=== PATIENT | female | born 1990 | race Caucasian/White ===

== ENCOUNTER 2017-01-05 11:31 | Emergency (ER) | payer BC ==
[2017-01-05 11:35] VITALS: BP 117/73
[2017-01-05] MEDS ORDERED: Ketorolac INJ* 60 MG/2 ML VIAL IM ONE (12:54)
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
[2017-01-05 14:30] LABS: UR Preg Internal Control QC Line Present
--- NOTE | 2017-01-05 15:02 | RAD ---
INDICATION: Right knee pain COMPARISON: None TECHNIQUE: AP, lateral, tunnel, and sunrise views were obtained. FINDINGS: The bony structures, joint spaces, and soft tissues are normal for age. IMPRESSION: NEGATIVE EXAMINATION.
== END 2017-01-05 15:45 | disposition home or self-care (01) ==
LOC: ED 11:31
DX: M25.561 Pain in right knee (principal); Z72.0 Tobacco use; X50.9XXA Other and unspecified overexertion or strenuous movements or postures, initial encounter; Y93.89 Activity, other specified; Y92.9 Unspecified place or not applicable
CPT/HCPCS: 81025; 96372; 99282; J1885

== ENCOUNTER 2018-04-28 12:20 | Emergency (ER) | payer BC ==
[2018-04-28 12:57] LABS: Urine Appearance Clear; Urine Blood 3+ (Negative); Urine Color Straw; Urine Ketones Negative (Negative); Urine Protein Negative (Negative); Urine Red Blood Cell 2+(6-10/hpf) (Absent); Urine Specific Gravity 1.009 (1.010-1.030); Urine Urobilinogen Negative (Negative); Urine White Blood Cell Trace(0-5/hpf) (Absent)
[2018-04-28 13:53] LABS: ABS Basophils 0.1 10^3/ul (0-0.2); ABS Eosinophils 0.5 10^3/ul (0-0.6); ABS Lymphocytes 3.7 10^3/ul (1.0-4.8); ABS Monocytes 0.6 10^3/ul (0-0.8); ABS Neutrophils 7.1 10^3/ul (1.5-7.7); ABS Nucleated RBC 0 10^3/ul; Hematocrit 44 % (35-47); Hemoglobin 15.5 g/dl (12.0-16.0); Lymphocyte % 31.1 % (25-47); Mean Corpuscular HGB Conc 36 g/dl (31-36); Mean Corpuscular Hemoglobin 34 pg (27-31); Mean Corpuscular Volume 96 fL (80-97); Mean Platelet Volume 8.4 um3 (7.4-10.4); Nucleated Red Blood Cells % 0.1; Platelet Count 257 10^3/ul (150-450); Red Blood Count 4.56 10^6/ul (4.00-5.40); Red Cell Distribution Width 12 % (10.5-15)
[2018-04-28 14:10] LABS: EGFR Non-African American 79.8 (>60)
--- NOTE | 2018-04-28 15:15 | RAD ---
Indication: LEFT flank pain. Cold sweats. Comparison: No relevant prior exams available on the [facility] for comparison. Technique: Renal ultrasound. Report: 9.7 x 3.8 x 4.6 cm RIGHT kidney. 9.2 x 4.0 x 4.5 cm LEFT kidney. Normal bilateral renal cortical thickness and echogenicity. No visible focal renal lesions or conspicuous stones or hydronephrosis. Grossly symmetric renal vascularity. Upper normal size spleen measuring 12.5 x 5.4 x 11.7 cm. No ascites visualized within the [id number]. IMPRESSION: #. Normal renal ultrasound.
--- NOTE | 2018-04-28 17:12 | ED ---
Abdominal Pain/Female - HPI Summary HPI Summary: Patient presents with acute left-sided abdominal pain that started yesterday night at 23:00 and lasted until 6:00am today. She reports his wraps around her Lt flank but also has pain in Rt flank. Preceding symptoms were pressure at the end of urination starting last week. She denies dysuria, urinary frequency or urgency. She also admits she and her partner trying to get . She is currently menstruating however admits this is a week later than it was supposed to be. She denies any abnormal vaginal discharge otherwise including qualities of discoloration or malodor. She has not had intercourse since the symptoms started and did denies dyspareunia prior to symptoms starting. No h/o abnormal pap. H/o yeast but does not feel the same. No previous h/o BV or STD's. Additionally she reports having diarrhea yesterday - no BM today. Denies nausea , vomiting, fever, chills. No previous ab surgeries or GI issues. 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 Hx Last Menstrual Period: 01/13/13 Pain Intensity: 7 Allergies/Adverse Reactions: Allergies Allergy/AdvReac Type Severity Reaction Status Date / Time Adhesive Tape Allergy Rash Verified 04/28/18 12:34 PMH/Surg Hx/FS Hx/Imm Hx Previously Healthy: Yes Endocrine/Hematology History: Denies: Hx Anticoagulant Therapy, Hx Diabetes, Hx Thyroid Disease, Hx Anemia , Autoimmune Disease Cardiovascular History: Denies: Hx Hypertension, Hx Pacemaker/ICD Respiratory History: Denies: Hx Asthma GI History: Denies: Hx Cirrhosis, Hx Crohn's Disease, Hx Diverticulosis, Hx Gall Bladder Disease, Hx Gastroesophageal Reflux Disease, Hx Gastrointestinal Bleed, Hx Hiatal Hernia, Hx Irritable Bowel, Hx Obstructive Bowel, Hx Ulcer History: Denies: Hx Kidney Infection, Hx Kidney Stones, Hx Renal Disease, Other Problems/Disorders Sensory History: Denies: Hx Hearing Aid Psychiatric History: Denies: Hx Panic Disorder - Surgical History Surgery Procedure, Year, and Place: D&C;. 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 Negative: Vomiting, Nausea Positive: see HPI Musculoskeletal: Negative Skin: Negative Neurological: Negative Negative: Headache Psychological: Normal All Other Systems Reviewed And Are Negative: Yes Physical Exam Triage Information Reviewed: Yes Vital Signs On Initial Exam: Initial Vitals Temp Pulse Resp BP Pulse Ox 98.1 F 94 18 130/79 98 04/28/18 12:30 04/28/18 12:30 04/28/18 12:30 04/28/18 12:30 04/28/18 12:30 Vital Signs Reviewed: Yes Appearance: Positive: Well-Appearing, Pain Distress - appears comfortable but reports 6/10 pain, Obese Skin: Positive: Warm, Skin Color Reflects Adequate Perfusion, Dry - no ecchymosis over ab Head/Face: Positive: Normal Head/Face Inspection Eyes: Positive: Normal, EOMI, Conjunctiva Clear - anicteric sclera ENT: Positive: Pharynx normal - mucosa moist Respiratory/Lung Sounds: Positive: Clear to Auscultation, Breath Sounds Present. Negative: Rales, Rhonchi, Wheezes Cardiovascular: Positive: Normal, RRR Abdomen Description: Positive: No Organomegaly, Soft, Other: - TTP over RLQ and LLQ - no rebounding. Negative: CVA Tenderness (R), CVA Tenderness (L), Guarding Bowel Sounds: Positive: Present Pelvic Exam: Positive: External Exam Normal, Bimanual Exam Normal, No Cerv. Motion Tender, Active Bleeding, Other - cervix was not visualized d/t body habitus. Negative: Lesions Musculoskeletal: Positive: Normal, Strength/ROM Intact Neurological: Positive: Normal, Sensory/Motor Intact, Alert, Oriented to Person Place, Time, CN Intact II-III Psychiatric: Positive: Normal Diagnostics - Vital Signs Vital Signs Temp Pulse Resp BP Pulse Ox 04/28/18 14:28 98.2 F 90 18 127/57 98 04/28/18 12:30 98.1 F 94 18 130/79 98 - Laboratory Lab Results: Lab Results 04/28/18 04/28/18 04/28/18 Range/Units 12:39 13:41 13:41 WBC 12.0 H (3.5-10.8) 10^3/ul RBC 4.56 (4.00-5.40) 10^6/ul Hgb 15.5 (12.0-16.0) g/dl Hct 44 (35-47) % MCV 96 (80-97) fL MCH 34 H (27-31) pg MCHC 36 (31-36) g/dl RDW 12 (10.5-15) % Plt Count 257 (150-450) 10^3/ul MPV 8.4 (7.4-10.4) um3 Neut % (Auto) 59.0 (38-83) % Lymph % (Auto) 31.1 (25-47) % Cand[place] % (Auto) 5.0 (0-7) % Eos % (Auto) 4.0 (0-6) % Baso % (Auto) 0.9 (0-2) % Absolute Neuts (auto) 7.1 (1.5-7.7) 10^3/ul Absolute Lymphs (auto) 3.7 (1.0-4.8) 10^3/ul Absolute Monos (auto) 0.6 (0-0.8) 10^3/ul Absolute Eos (auto) 0.5 (0-0.6) 10^3/ul Absolute Basos (auto) 0.1 (0-0.2) 10^3/ul Absolute Nucleated RBC 0 10^3/ul Nucleated RBC % 0.1 Sodium 139 (135-145) mmol/L Potassium 4.0 (3.5-5.0) mmol/L Chloride 106 (101-111) mmol/L Carbon Dioxide 26 (22-32) mmol/L Anion Gap 7 (2-11) mmol/L BUN 9 (6-24) mg/dL Creatinine 0.86 (0.51-0.95) mg/dL Est GFR ( Amer) 96.5 (>60) Est GFR (Non-Af Amer) 79.8 (>60) BUN/Creatinine Ratio 10.5 (8-20) Glucose 87 (70-100) mg/dL Lactic Acid (0.5-2.0) mmol/L Calcium 9.6 (8.6-10.3) mg/dL Magnesium 1.8 L (1.9-2.7) mg/dL Total Bilirubin 0.40 (0.2-1.0) mg/dL AST 13 (13-39) U/L ALT 16 (7-52) U/L Alkaline Phosphatase 81 (34-104) U/L C-Reactive Protein 25.64 H (<8.01) mg/L Total Protein 7.1 (6.4-8.9) g/dL Albumin 4.2 (3.2-5.2) g/dL Globulin 2.9 (2-4) g/dL Albumin/Globulin Ratio 1.4 (1-3) Lipase < 10 L (11.0-82.0) U/L Beta HCG, Quant < 0.60 mIU/mL Urine Color Straw Urine Appearance Clear Urine pH 6.0 (5-9) Ur Specific [place] 1.009 L (1.010-1.030) Urine Protein Negative (Negative) Urine Ketones Negative (Negative) Urine Blood 3+ A (Negative) Urine Nitrate Negative (Negative) Urine Bilirubin Negative (Negative) Urine Urobilinogen Negative (Negative) Ur Leukocyte Esterase Negative (Negative) Urine WBC (Auto) Trace(0-5/hpf) (Absent) Urine RBC (Auto) 2+(6-10/hpf) A (Absent) Ur Squamous Epith Cells Present A (Absent) Urine Bacteria Absent (Absent) Urine Glucose Negative (Negative) 04/28/18 Range/Units 13:41 WBC (3.5-10.8) 10^3/ul RBC (4.00-5.40) 10^6/ul Hgb (12.0-16.0) g/dl Hct (35-47) % MCV (80-97) fL MCH (27-31) pg MCHC (31-36) g/dl RDW (10.5-15) % Plt Count (150-450) 10^3/ul MPV (7.4-10.4) um3 Neut % (Auto) (38-83) % Lymph % (Auto) (25-47) % Candler % (Auto) (0-7) % Eos % (Auto) (0-6) % Baso % (Auto) (0-2) % Absolute Neuts (auto) (1.5-7.7) 10^3/ul Absolute Lymphs (auto) (1.0-4.8) 10^3/ul Absolute Monos (auto) (0-0.8) 10^3/ul Absolute Eos (auto) (0-0.6) 10^3/ul Absolute Basos (auto) (0-0.2) 10^3/ul Absolute Nucleated RBC 10^3/ul Nucleated RBC % Sodium (135-145) mmol/L Potassium (3.5-5.0) mmol/L Chloride (101-111) mmol/L Carbon Dioxide (22-32) mmol/L Anion Gap (2-11) mmol/L BUN (6-24) mg/dL Creatinine (0.51-0.95) mg/dL Est GFR ( Amer) (>60) Est GFR (Non-Af Amer) (>60) BUN/Creatinine Ratio (8-20) Glucose (70-100) mg/dL Lactic Acid 0.5 (0.5-2.0) mmol/L Calcium (8.6-10.3) mg/dL Magnesium (1.9-2.7) mg/dL Total Bilirubin (0.2-1.0) mg/dL AST (13-39) U/L ALT (7-52) U/L Alkaline Phosphatase (34-104) U/L C-Reactive Protein (<8.01) mg/L Total Protein (6.4-8.9) g/dL Albumin (3.2-5.2) g/dL Globulin (2-4) g/dL Albumin/Globulin Ratio (1-3) Lipase (11.0-82.0) U/L Beta HCG, Quant mIU/mL Urine Color Urine Appearance Urine pH (5-9) Ur Specific [place] (1.010-1.030) Urine Protein (Negative) Urine Ketones (Negative) Urine Blood (Negative) Urine Nitrate (Negative) Urine Bilirubin (Negative) Urine Urobilinogen (Negative) Ur Leukocyte Esterase (Negative) Urine WBC (Auto) (Absent) Urine RBC (Auto) (Absent) Ur Squamous Epith Cells (Absent) Urine Bacteria (Absent) Urine Glucose (Negative) Result Diagrams: 04/28/18 13:41 04/28/18 13:41 Lab Statement: Any lab studies that have been ordered have been reviewed, and results considered in the medical decision making process. Re-Evaluation - Re-Evaluation First Eval Change: Worse - 6/10 pain increased to 8/10 - will initiated IV morphine, zofran and fluids Abdominal Pain Fem Course/Dx - Course Course Of Treatment: Patient presents with acute left lower quadrant pain radiating around to her flank and diarrhea yesterday. Preceding symptoms of urinary pressure at the end of urination however her evaluation appears to be negative. Her transvaginal ultrasound reveals a 0.9 cm cyst in the right ovary (hemorrhagic versus endometrioma) and patient reminds me her pain is not predominantly on the right, it's on The Left. She Was Tender on ab Exam in the LLQ and Is now Reporting 8 Out Of 10 Pain - pain meds ordered. Her U/A Is Positive for Blood However She Has Vaginal Bleeding confirmed on pelvic exam Most Likely from Her Period Which She Believes She Started a Little Late. Her HCG Is Negative and No Ectopic Is Identified on Transvaginal Ultrasound Although She Is Trying to Get . TVUS also r/o'd torsion. Due To Elevated White Blood Cell Count, CRP and Left Lower Quadrant Pain w/ Bowel Symptoms, CT with IV Contrast Was Ordered to assess for Diverticulitis. Pt signed out to Yadira Washington PA-C in stable condition. NOTE: pelvic cx's taken but clinical suspicion of PID is extremely low as exam was nontender all the way around. - Diagnoses Provider Diagnoses: LLQ abdominal pain Discharge - Sign-Out/Discharge Documenting (check all that apply): Sign-Out Patient Signing out patient TO: Naomy Washington - Discharge Plan Condition: Stable - Billing Disposition and Condition Condition: STABLE
--- NOTE | 2018-04-28 17:29 | RAD ---
HISTORY: LLQ pain, beta hCG negative COMPARISONS: None TECHNIQUE: Multiple transverse and longitudinal ultrasound images were obtained of the pelvis using grayscale, color Doppler, and spectral Doppler imaging using the endovaginal transducer. FINDINGS: UTERUS: The uterus measures 6.7 x 3 x 3.5 cm. The uterus is normal in shape, size, contour, and echotexture. Cervical nabothian cysts are noted. ENDOMETRIUM: The endometrial stripe is smooth. The endometrium measures 0.3 cm in thickness. CUL-DE-SAC: There is no free fluid within the cul-de-sac. RIGHT OVARY: The right ovary measures 3.1 x 2.2 x 1.8 cm. Multiple follicles are noted. There is a hyperechoic focus within the right ovary measuring 0.9 x 0.5 x 0.6 cm in size. Normal arterial and venous waveforms are identifiable within the ovary on spectral Doppler imaging. LEFT OVARY: The left ovary measures 2.2 x 2.1 x 1.6 cm. Multiple follicles are noted. Normal arterial and venous waveforms are identifiable within the ovary on spectral Doppler imaging. BLADDER: The bladder is not well visualized. OTHER: None IMPRESSION: 1. NO SONOGRAPHIC FEATURES OF TORSION. PLEASE NOTE THAT PARTIAL OR INTERMITTENT TORSION MAY BE SONOGRAPHICALLY NORMAL. 2. HYPERECHOIC FOCUS WITHIN THE RIGHT OVARY MEASURING UP TO 0.9 CM. THIS MAY REPRESENT A SMALL HEMORRHAGIC CYST VERSUS AN ENDOMETRIOMA.
[2018-04-28] MEDS ORDERED: Ondansetron INJ* 2 MG/ML VIAL IV ONE (17:45)
[2018-04-28] MEDS ORDERED: Morphine INJ* 4 MG/ML 1 ML SYRINGE (NEW SYRINGE VERSION) IV ONE (17:45)
[2018-04-28] MEDS ORDERED: NS 0.9% 1000 ML* 1,000 ML IV ONE (17:45)
[2018-04-28] MEDS ORDERED: Iohexol 300* (CONTRAST) 10 ML SDV IV ONE (19:17)
[2018-04-28 19:49] VITALS: BP 107/68
--- NOTE | 2018-04-28 19:49 | RAD ---
EXAM: CT Abdomen and Pelvis With Intravenous Contrast EXAM DATE/TIME: 04/28/2018 7:29 PM CLINICAL HISTORY: 27 years old, female; Pain; Abdominal pain; Localized; Left lower quadrant (llq); Additional info: Llq pain - diverticulitis? TECHNIQUE: Axial computed tomography images of the abdomen and pelvis with intravenous contrast. All CT scans at this facility use at least one of these dose optimization techniques: automated exposure control; mA and/or kV adjustment per patient size (includes targeted exams where dose is matched to clinical indication); or iterative reconstruction. Coronal and sagittal reformatted images were created and reviewed. CONTRAST: 148 ml of [id number] administered intravenously. COMPARISON: DX HIP RT HIP RIGHT 2 VIEWS AND PELVIS 01/09/2017 9:11 AM FINDINGS: Lower thorax: No acute findings. ABDOMEN: Liver: There is mild hepatomegaly. This fatty lesion is seen best on axial image 67 of series 2. Gallbladder and bile ducts: Normal. No calcified stones. No ductal dilation. Pancreas: Normal. No ductal dilation. Spleen: Normal. No splenomegaly. Adrenals: Normal. No mass. Kidneys and ureters: Normal. No hydronephrosis. Stomach and bowel: Most of the colon and rectum are collapsed which limits evaluation for inflammatory change. Appendix: The appendix is unremarkable and seen best on axial image 46 of series 2. PELVIS: Bladder: Unremarkable as visualized. Reproductive: Unremarkable as visualized. ABDOMEN and PELVIS: Intraperitoneal space: There is a very small central fat attenuation lesion anterior to the proximal sigmoid colon measuring 10 mm diameter with no surrounding inflammatory change, possible epiploic appendagitis. Bones/joints: No acute fracture. No dislocation. Soft tissues: Unremarkable. Vasculature: Normal. No abdominal aortic aneurysm. Lymph nodes: Normal. No enlarged lymph nodes. IMPRESSION: 1. No evidence for acute diverticulitis or other bowel inflammatory change. 2. There is a very small central fat attenuation lesion anterior to the proximal sigmoid colon measuring 10 mm diameter with no surrounding inflammatory change, possible epiploic appendagitis. COMMENT: Consistent with the [employer]'s Incidental Findings Committee Report (J Am Carter Radiol 2010): Unless the patient's specific circumstances suggest otherwise, any liver lesion 0.5 cm or less, any cystic kidney lesion less than 1.0 cm, and/or any adrenal lesion 1.0 cm or less not otherwise characterized in this report as possessing suspicious or indeterminate imaging features is/are highly likely to be benign and do not require follow-up imaging or biopsy. To contact [facility] with a general question: [facility] - [phone] For direct physician to physician contact: Physician Hotline - [phone] [facility] ([facility] Facility ID #[id number])
--- NOTE | 2018-04-28 20:03 | ED ---
Progress - Progress Note Progress Note: patient signed out by monique pending CT. CT shows: IMPRESSION: 1. No evidence for acute diverticulitis or other bowel inflammatory change. 2. There is a very small central fat attenuation lesion anterior to the proximal sigmoid colon measuring 10 mm diameter with no surrounding inflammatory change, possible epiploic appendagitis. Re-Evaluation - Re-Evaluation First Eval Change: Worse - 6/10 pain increased to 8/10 - will initiated IV morphine, zofran and fluids Course/Dx - Course Course Of Treatment: Patient presents with acute left lower quadrant pain radiating around to her flank and diarrhea yesterday. Preceding symptoms of urinary pressure at the end of urination however her evaluation appears to be negative. Her transvaginal ultrasound reveals a 0.9 cm cyst in the right ovary (hemorrhagic versus endometrioma) and patient reminds me her pain is not predominantly on the right, it's on The Left. She Was Tender on ab Exam in the LLQ and Is now Reporting 8 Out Of 10 Pain - pain meds ordered. Her U/A Is Positive for Blood However She Has Vaginal Bleeding confirmed on pelvic exam Most Likely from Her Period Which She Believes She Started a Little Late. Her HCG Is Negative and No Ectopic Is Identified on Transvaginal Ultrasound Although She Is Trying to Get . TVUS also r/o'd torsion. Due To Elevated White Blood Cell Count, CRP and Left Lower Quadrant Pain w/ Bowel Symptoms, CT with IV Contrast Was Ordered to assess for Diverticulitis. Pt signed out to Yadira Washington PA-C in stable condition. NOTE: pelvic cx's taken but clinical suspicion of PID is extremely low as exam was nontender all the way around. CT shows possible epilopic appendigitis which would explain symptoms. discussed that this is a self limited disorder. patient requested pain medication so will give short course of tramadol. patient understand and agrees with plan. 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
== END 2018-04-28 20:25 | disposition home or self-care (01) ==
LOC: ED 12:20
DX: R10.32 Left lower quadrant pain (principal); F17.210 Nicotine dependence, cigarettes, uncomplicated
CPT/HCPCS: 36415; 74177; 76775; 76830; 80053; 81003; 81015; 83605; 83690; 83735; 84702; 85025; 86140; 87086; 87480; 87491; 87510; 87591; 87661; 96361; 96374; 96375; 99283; J2270; J2405; Q9967

== ENCOUNTER 2018-09-23 11:23 | Emergency (ER) | payer BC ==
--- NOTE | 2018-09-23 11:52 | UC ---
Minor Trauma HPI - HPI Summary HPI Summary: 27 yo WF p/w s/p fall onto a 5 gallon bucket when she miscalcualted the height of last step a her sister's house 3 days ago, now has bruising and pain in left upper upper arm, left chestwall and left ankle but able to ambulate - History of Current Complaint Chief Complaint: UCTrauma Stated Complaint: BRUISED ARM AND SIDE Time Seen by Provider: 09/23/18 11:40 Hx Obtained From: Patient Hx Last Menstrual Period: 09/05/18 Onset/Duration: Sudden Onset Severity Initially: Moderate Severity Currently: Severe Pain Intensity: 5 - Allergies/Home Medications Allergies/Adverse Reactions: Allergies Allergy/AdvReac Type Severity Reaction Status Date / Time Adhesive Tape Allergy Rash Verified 09/23/18 11:39 Home Medications: Home Medications traZODone TAB* [Desyrel TAB*] 50 mg PO DAILY 09/23/18 [History Confirmed ] PMH/Surg Hx/FS Hx/Imm Hx Other History Of: Negative For: Anticoagulant Therapy - Surgical History Surgical History: Yes Surgery Procedure, Year, and Place: D&C;. TUBE IN EARS; - Family History Known Family History: Negative: Cardiac Disease - Social History Alcohol Use: Weekly Alcohol Amount: "weekends" Substance Use Type: Marijuana Substance Use Comment - Amount & Last Used: daily Smoking Status (MU): Current Every Day Smoker Amount Used/How Often: 1/2 PPD Household Exposure Type: Cigarettes Review of Systems All Other Systems Reviewed And Are Negative: Yes - Comments Additional Review of Systems Comments: Constitutional: Negative Skin: Negative Eyes: Negative ENT: Negative Cardiovascular: Negative Respiratory: Negative Gastrointestinal: Negative Genitourinary: Negative Musculoskeletal: see HPI Neurological: Negative Psychological: Normal All Other Systems Reviewed And Are Negative: Yes Physical Exam - Summary Physical Exam Summary: Triage Information Reviewed: Yes Appearance: No Pain Distress Eye Exam: Normal ENT Exam: Normal Neck: Supple Respiratory: Lungs clear, Normal breath sounds Cardiovascular: Positive: RRR, S1, S2 Abdominal Exam: Normal Musculoskeletal Exam: ecchymosis on left lateral upper arm, left lateral chestwall posterior to mid-axillary line around rib5-6, left lateral ,alleolar tenderness, NVI, pulses intact Neurological Exam: Normal Psychological Exam: Normal Skin Exam: Normal Vital Signs: Initial Vital Signs Temp 36.6 C 09/23/18 11:35 Pulse 80 09/23/18 11:35 Resp 17 09/23/18 11:35 BP 143/60 09/23/18 11:35 Pulse Ox 100 09/23/18 11:35 Minor Trauma Course/Dx - Course Course Of Treatment: XR of left humerus, elbow, forearm and left ankle NEG for fx, pt will need work note to be off to recover. - Differential Dx/Diagnosis Provider Diagnosis: Fall (on) (from) other stairs and steps, initial encounter, Contusion, upper arm, Contusion Discharge - Sign-Out/Discharge Documenting (check all that apply): Patient Departure All imaging exams completed and their final reports reviewed: Yes - Discharge Plan Condition: Stable Disposition: HOME Patient Education Materials: Contusion in Adults (ED) Forms: *Work Release Referrals: Consuelo Garcia [Primary Care Provider] - - Billing Disposition and Condition Condition: STABLE Disposition: Home
[2018-09-23 12:37] VITALS: BP 143/60
== END 2018-09-23 13:06 | disposition home or self-care (01) ==
LOC: UCEAST 11:23
DX: S40.022A Contusion of left upper arm, initial encounter (principal); F17.210 Nicotine dependence, cigarettes, uncomplicated; Z91.09 Other allergy status, other than to drugs and biological substances; W10.8XXA Fall (on) (from) other stairs and steps, initial encounter; Y92.099 Unspecified place in other non-institutional residence as the place of occurrence of the external cause
CPT/HCPCS: 99211; G0463

== ENCOUNTER 2018-12-03 15:20 | Emergency (ER) | payer BC ==
[2018-12-03 16:28] VITALS: BP 130/81
== END 2018-12-03 17:45 | disposition left against medical advice (07) ==
LOC: ED 15:20
DX: K92.1 Melena (principal); Z53.21 Procedure and treatment not carried out due to patient leaving prior to being seen by health care provider

== ENCOUNTER 2019-05-24 08:15 | Emergency (ER) | payer BC ==
[2019-05-24 08:29] VITALS: BP 130/80
--- NOTE | 2019-05-24 09:04 | UC ---
Ear Complaint HPI - HPI Summary HPI Summary: 28 year old female with no PMH presents with nasal congestion, Right ear pain. S/s started Last . No fever, chills, minimal cough last night. no sore throat. no GI symptoms. No recent ABX. Patient states had ear infections as child, none recently x years. - History of Current Complaint Chief Complaint: UCEar Stated Complaint: SINUS ISSUE EAR PAIN Time Seen by Provider: 05/24/19 08:51 Hx Obtained From: Patient Hx Last Menstrual Period: 04/22/19 ?: No Onset/Duration: Sudden Onset Severity Initially: Moderate Severity Currently: Moderate Pain Intensity: 6 Pain Scale Used: 0-10 Numeric Associated Signs/Symptoms: Positive: Hearing Loss, URI Symptoms. Negative: Trauma to Ear Related History: Smoking, Prior ENT Surgery - tubes placed as child - Allergies/Home Medications Allergies/Adverse Reactions: Allergies Allergy/AdvReac Type Severity Reaction Status Date / Time Adhesive Tape Allergy Rash Verified 05/24/19 08:28 Home Medications: Home Medications Bupropion XL* [Wellbutrin XL *] 150 mg PO DAILY 05/24/19 [History Confirmed ] PMH/Surg Hx/FS Hx/Imm Hx Previously Healthy: Yes Other History Of: Negative For: Anticoagulant Therapy - Surgical History Surgical History: Yes Surgery Procedure, Year, and Place: D&C;. TUBE IN EARS; - Family History Known Family History: Positive: Non-Contributory Negative: Cardiac Disease - Social History Occupation: Employed Full-time Alcohol Use: Occasionally Alcohol Amount: "weekends" Substance Use Type: None Substance Use Comment - Amount & Last Used: daily Smoking Status (MU): Light Every Day Tobacco Smoker Amount Used/How Often: 4-5 sig/day Household Exposure Type: Cigarettes Review of Systems All Other Systems Reviewed And Are Negative: Yes Constitutional: Positive: Fatigue. Negative: Fever, Chills ENT: Positive: Ear Ache, Nasal Discharge, Sinus Congestion, Sinus Pain/ Tenderness Respiratory: Positive: Cough. Negative: Shortness Of Breath Cardiovascular: Negative: Palpitations, Chest Pain Musculoskeletal: Positive: Arthralgia, Myalgia Neurological: Positive: Headache Is Patient Immunocompromised?: No Physical Exam Triage Information Reviewed: Yes Appearance: No Pain Distress, Well-Nourished, Ill-Appearing - mild Vital Signs: Initial Vital Signs Temp 97.4 F 05/24/19 08:22 Pulse 70 05/24/19 08:22 Resp 16 05/24/19 08:22 BP 130/80 05/24/19 08:22 Pulse Ox 98 05/24/19 08:22 Vital Signs Reviewed: Yes Eyes: Positive: Conjunctiva Clear ENT: Positive: Pharynx normal, Nasal congestion, TM bulging, TM dull, TM red, Sinus tenderness - b/l submand. Negative: Pharyngeal erythema, Tonsillar swelling, Tonsillar exudate, Uvula midline Neck: Positive: Supple, Nontender, No Lymphadenopathy. Negative: Nuchal Rigidity, Enlarged Nodes @ Respiratory: Positive: Chest non-tender, Lungs clear, Normal breath sounds, No respiratory distress, No accessory muscle use. Negative: Respiratory distress, Crackles, Rhonchi, Stridor, Wheezing Cardiovascular: Positive: RRR, No Murmur Neurological Exam: Normal Psychological Exam: Normal Ear Complaint Course/Dx - Course Course Of Treatment: AOM : - Amoxicillin twice daily x 7 days. - Over the counter medications as needed for symptoms - Increase fluid intake - Work note given - Go to ER with worsening symptoms, headache note relieved by motrin/ tylenol, fever > 102. - Differential Dx/Diagnosis Differential Diagnosis/HQI/PQRI: Otitis Media Provider Diagnosis: AOM (acute otitis media) Discharge ED - Sign-Out/Discharge Documenting (check all that apply): Patient Departure All imaging exams completed and their final reports reviewed: No Studies - Discharge Plan Condition: Good Disposition: HOME Prescriptions: Amoxicillin PO (*) [Amoxicillin 875 MG (*)] 875 mg PO BID #14 tab Patient Education Materials: Ear Infection (ED) Forms: *Work Release Referrals: Consuelo Garcia [Primary Care Provider] - Additional Instructions: - Amoxicillin twice daily x 7 days. - Over the counter medications as needed for symptoms - Increase fluid intake - Work note given - Go to ER with worsening symptoms, headache note relieved by motrin/ tylenol, fever > 102. - Billing Disposition and Condition Condition: GOOD Disposition: Home
== END 2019-05-24 09:15 | disposition home or self-care (01) ==
LOC: UCEAST 08:15
DX: H66.91 Otitis media, unspecified, right ear (principal); R09.81 Nasal congestion; F17.210 Nicotine dependence, cigarettes, uncomplicated; Z91.09 Other allergy status, other than to drugs and biological substances
CPT/HCPCS: 99212; G0463